=== PATIENT | female | born 1980 | race Hispanic/Latino ===

== ENCOUNTER 2020-02-10 11:17 | Outpatient (CLI) | payer OTHER ==
--- NOTE | 2020-02-10 12:33 | XRay Report ---
BILATERAL HANDS 4 VIEW(S) INDICATION / CLINICAL INFORMATION: BILATERAL HAND PAIN COMPARISON: None available. FINDINGS: RIGHT HAND: There is no acute fracture or dislocation. Bone mineralization is normal. No significant arthritis. S oft tissues are unremarkable. There is no radiopaque foreign object. LEFT HAND: There is no acute fracture or dislocation. Bone mineralization is normal. No significant arthritis. S oft tissues are unremarkable. There is no radiopaque foreign object. IMPRESSION: No acute osseous abnormality of either hand. Signer Name: Heraclio Garcia MD Signed: 02/10/2020 12:28 PM Workstation Name: [id number]
== END 2020-02-10 11:18 | disposition home or self-care (01) ==
LOC: XRAY 11:17
PROVIDERS: ATTEND Internal Medicine
DX: M79.642 Pain in left hand (principal); M79.641 Pain in right hand; F98.8 Other specified behavioral and emotional disorders with onset usually occurring in childhood and adolescence; F31.89 Other bipolar disorder; F41.8 Other specified anxiety disorders; F25.8 Other schizoaffective disorders; G40.802 Other epilepsy, not intractable, without status epilepticus